=== PATIENT | female | born 1945 | race Caucasian/White ===

== ENCOUNTER 2018-02-04 09:42 | Emergency (ER) | payer MEDICARE ==
--- NOTE | 2018-02-04 10:02 | ER Document Report ---
ED Fall - General Chief Complaint: Fall Stated Complaint: FALL RIGHT HIP PAIN Time Seen by Provider: 02/04/18 10:01 Notes: 73-year-old female lost her balance approximately 2 weeks ago. Fell landed on her right side. Complaining of pain in her right hip. Was bruised but bruising is better but walking and pain seems to be getting worse over the last 2 weeks. Pain in the bilateral humerus arms. States that she thinks is just her muscles that are sore but once x-rays of her arms as well. Had a headache this morning but has chronic headaches. Requesting something for pain. States that her doctor has retired and she does not have regular doctor at this time. TRAVEL OUTSIDE OF THE [place] IN LAST 30 DAYS: No - HPI Occurred: Other - 2 weeks ago Where: Home Past Medical History - General Information source: Patient - Social History Smoking Status: Former Smoker Chew tobacco use (# tins/day): No Frequency of alcohol use: None Drug Abuse: None Lives with: Spouse/Significant other Family History: Reviewed & Not Pertinent Patient has suicidal ideation: No Patient has homicidal ideation: No - Past Medical History Cardiac Medical History: Reports: None Pulmonary Medical History: Reports: None EENT Medical History: Reports: None Renal/ Medical History: Reports: None. Denies: Hx Peritoneal Dialysis GI Medical History: Reports: Hx Gastroesophageal Reflux Disease Past Surgical History: Reports: Hx Hysterectomy Review of Systems - Review of Systems Constitutional: No symptoms reported EENT: No symptoms reported Cardiovascular: No symptoms reported Respiratory: No symptoms reported Gastrointestinal: No symptoms reported Genitourinary: No symptoms reported Female Genitourinary: No symptoms reported Musculoskeletal: See HPI, Other - Right hip pain, bilateral arm pain Skin: No symptoms reported Hematologic/Lymphatic: No symptoms reported Neurological/Psychological: No symptoms reported, Headaches Physical Exam - Vital signs Interpretation: Normal - General General appearance: Appears well, Alert - HEENT Head: Normocephalic, Atraumatic Eyes: Normal Pupils: PERRL - Respiratory Respiratory status: No respiratory distress Chest status: Nontender Breath sounds: Normal Chest palpation: Normal - Cardiovascular Rhythm: Regular Heart sounds: Normal auscultation Murmur: No - Abdominal Inspection: Normal Distension: No distension Bowel sounds: Normal Tenderness: Nontender Organomegaly: No organomegaly - Back Back: Normal, Nontender - Extremities General upper extremity: Normal inspection, Normal color, Normal ROM, Normal temperature, Other - Tenderness palpation bilateral bicep area. No obvious deformities. Full range of motion of the shoulder and elbow. General lower extremity: Normal inspection, Normal color, Normal temperature, Other - Range of motion of the right hip due to pain. Tenderness to palpation of the trochanter on the right. Mild tenderness palpation of the pubic symphysis on the right side.. No: Chloe's sign - Neurological Neuro grossly intact: Yes Cognition: Normal Orientation: AAOx4 Juan Coma Scale Eye Opening: Spontaneous Juan Coma Scale Verbal: Oriented Juan Coma Scale Motor: Obeys Commands Juan Coma Scale Total: 15 Speech: Normal Motor strength normal: LUE, RUE, LLE, RLE Sensory: Normal - Psychological Associated symptoms: Normal affect, Normal mood - Skin Skin Temperature: Warm Skin Moisture: Dry Skin Color: Normal Course - Re-evaluation Re-evalutation: 02/04/18 10:39 This time we will x-ray the right hip and bilateral humerus. Will get something for the pain and reassess. 02/04/18 12:22 Currently there is no radiographic evidence of acute fracture. Will treat with pain medication. Advised to return for any worsening symptoms or concerns. 02/04/18 12:22 Hip/Pelvis X-Ray 02/04/18 09:50 IMPRESSION: NEGATIVE STUDY OF THE RIGHT HIP. NO RADIOGRAPHIC EVIDENCE OF ACUTE INJURY. Humerus X-Ray 02/04/18 10:30 IMPRESSION: NEGATIVE STUDY OF THE RIGHT AND LEFT HUMERUS. NO RADIOGRAPHIC EVIDENCE OF ACUTE INJURY. Discharge - Discharge Clinical Impression: Contusion of right hip Qualifiers: Encounter type: initial encounter Qualified Code(s): S70.01XA - Contusion of right hip, initial encounter Strain of biceps tendon Qualifiers: Encounter type: sequela Laterality: unspecified laterality Qualified Code(s): S46.219S - Strain of muscle, fascia and tendon of other parts of biceps, unspecified arm, sequela Condition: Good Disposition: HOME, SELF-CARE Instructions: Contusion ([facility]), Muscle Strain ([facility]) Prescriptions: Docusate Sodium [Colace 100 mg Capsule] 100 mg PO DAILY #30 capsule Hydrocodone/Acetaminophen [[place] 5-325 mg Tablet] 1 tab PO TID PRN 5 Days #15 tablet PRN Reason: Referrals: BERT HURT MD [ACTIVE STAFF] - Follow up as needed MAYI WATTS MD [ACTIVE STAFF] - Follow up as needed
[2018-02-04] MEDS ORDERED: HYDROCODONE/ACETAMINOPHEN 5-325 MG TABLET PO ONE (10:30)
--- NOTE | 2018-02-04 12:19 | RADIOLOGY REPORT (SQ) ---
EXAM DESCRIPTION: HUMERUS BILAT 2 OR MORE VIEWS COMPLETED DATE/TIME: 02/04/2018 11:54 am REASON FOR STUDY: fall, pain COMPARISON: None. NUMBER OF VIEWS: Two views. TECHNIQUE: Two radiographic images were acquired of the right and left humerus to include elbow and shoulder in at least one projection. LIMITATIONS: None. FINDINGS: MINERALIZATION: Normal. BONES: No acute fracture or dislocation. No worrisome bone lesions. SOFT TISSUES: No obvious swelling or foreign body. OTHER: No other significant finding. IMPRESSION: NEGATIVE STUDY OF THE RIGHT AND LEFT HUMERUS. NO RADIOGRAPHIC EVIDENCE OF ACUTE INJURY. TECHNICAL DOCUMENTATION: JOB ID: [id number] [employer]- All Rights Reserved Reading location - IP/workstation name: [email or web address]
--- NOTE | 2018-02-04 12:20 | RADIOLOGY REPORT (SQ) ---
EXAM DESCRIPTION: HIP RIGHT AP/LATERAL COMPLETED DATE/TIME: 02/04/2018 11:54 am REASON FOR STUDY: fall COMPARISON: None. NUMBER OF VIEWS: Two views. TECHNIQUE: AP pelvis and additional frog-leg view of the right hip. LIMITATIONS: None. FINDINGS: MINERALIZATION: Normal. RIGHT HIP: No fracture or dislocation. No worrisome bone lesions. LEFT HIP: No fracture or dislocation. No worrisome bone lesions. PUBIS AND ISCHIUM: No fracture. PELVIS: No fracture. SACRUM: No fracture or dislocation. No worrisome bone lesions. LOWER LUMBAR SPINE: No fracture or dislocation. No worrisome bone lesions. No significant disc disea se. SOFT TISSUES: No findings. OTHER: No other significant finding. IMPRESSION: NEGATIVE STUDY OF THE RIGHT HIP. NO RADIOGRAPHIC EVIDENCE OF ACUTE INJURY. TECHNICAL DOCUMENTATION: JOB ID: [id number] [employer]- All Rights Reserved Reading location - IP/workstation name: [email or web address]
[2018-02-04] MEDS ORDERED: KETOROLAC TROMETHAMINE 60 MG/2 ML SDV IM ONE (12:29)
[2018-02-04 13:04] VITALS: BP 123/67
== END 2018-02-04 13:08 | disposition home or self-care (01) ==
LOC: ER 09:42
DX: S70.01XA Contusion of right hip, initial encounter (principal); S46.219D Strain of muscle, fascia and tendon of other parts of biceps, unspecified arm, subsequent encounter; M25.551 Pain in right hip; M79.601 Pain in right arm; M79.602 Pain in left arm; R51 Headache; W19.XXXD Unspecified fall, subsequent encounter; Z87.891 Personal history of nicotine dependence
CPT/HCPCS: 99284; 96372; 73502; 73060; J1885; A9270

== ENCOUNTER 2018-02-11 17:00 | Emergency (ER) | payer MEDICARE ==
[2018-02-11] MEDS ORDERED: HYDROCODONE/ACETAMINOPHEN 5-325 MG TABLET PO ONE (18:36)
[2018-02-11] MEDS ORDERED: IBUPROFEN 600 MG TABLET PO ONE (18:36)
--- NOTE | 2018-02-11 18:37 | ER Document Report ---
ED Medical Screen (RME) - General Chief Complaint: Arm Problem Stated Complaint: PAIN ON RIGHT SIDE Time Seen by Provider: 02/11/18 17:21 Notes: She fell approximately 3 weeks ago. Was seen in the ER by myself. Was having pain in the right arm and right hip. Had a shot of Toradol which helped for 2 days but now complaining of worsening pain. Thinks he may have psoriatic arthritis because her [id number] lifted up on the Internet. States she is having some much pain that she cannot get out of bed. TRAVEL OUTSIDE OF THE [place] IN LAST 30 DAYS: No - HPI Onset: Other - 3 weeks ago - Related Data Allergies/Adverse Reactions: amitriptyline [From Triavil] Allergy (Verified 02/11/18 18:32) perphenazine [From Triavil] Allergy (Verified 02/11/18 18:32) trifluoperazine [From Stelazine] Allergy (Verified 02/11/18 18:32) Past Medical History - General Information source: Patient - Social History Chew tobacco use (# tins/day): No Frequency of alcohol use: None Drug Abuse: None Lives with: Spouse/Significant other Family history: Reviewed & Not Pertinent Renal/ Medical History: Denies: Hx Peritoneal Dialysis GI Medical History: Reports: Hx Gastroesophageal Reflux Disease Psychiatric Medical History: Reports: Hx Depression Past Surgical History: Reports: Hx Cholecystectomy, Hx Hysterectomy, Hx Tubal Ligation Review of Systems - Review of Systems Constitutional: No symptoms reported EENT: No symptoms reported Cardiovascular: No symptoms reported Respiratory: No symptoms reported Gastrointestinal: No symptoms reported Genitourinary: No symptoms reported Female Genitourinary: No symptoms reported Musculoskeletal: See HPI, Other - Shoulder plain, hip pain Skin: Other - Rash at the base of the scalp Hematologic/Lymphatic: No symptoms reported Neurological/Psychological: No symptoms reported Physical Exam - Vital signs Vitals: Temp Pulse Resp BP Pulse Ox 98.8 F 90 14 128/58 H 96 02/11/18 17:08 02/11/18 17:08 02/11/18 17:08 02/11/18 17:08 02/11/18 17:08 Interpretation: Normal - General General appearance: Appears well, Alert - Respiratory Respiratory status: No respiratory distress Chest status: Nontender Breath sounds: Normal Chest palpation: Normal - Cardiovascular Rhythm: Regular Heart sounds: Normal auscultation Murmur: No - Extremities General upper extremity: Normal inspection, Tender, Normal color, Normal ROM, Normal temperature, Other - Numbness right shoulder/proximal varus General lower extremity: Normal inspection, Tender, Normal color, Normal ROM, Normal temperature, Normal weight bearing, Other - Out pain to palpation right hip.. No: Chloe's sign - Skin Skin Temperature: Warm Skin Moisture: Dry Skin Color: Normal, Other - Faint rash at the hairline at the occipital scalp. Course - Vital Signs Vital signs: Temp Pulse Resp BP Pulse Ox 98.8 F 90 14 128/58 H 96 02/11/18 17:08 02/11/18 17:08 02/11/18 17:08 02/11/18 17:08 02/11/18 17:08
--- NOTE | 2018-02-11 19:30 | RADIOLOGY REPORT (SQ) ---
EXAM DESCRIPTION: CHEST SINGLE VIEW COMPLETED DATE/TIME: 02/11/2018 7:24 pm REASON FOR STUDY: weakness, cough COMPARISON: None. EXAM PARAMETERS: NUMBER OF VIEWS: One view. TECHNIQUE: Single frontal radiographic view of the chest acquired. RADIATION DOSE: NA LIMITATIONS: None. FINDINGS: LUNGS AND PLEURA: No opacities, masses or pneumothorax. No pleural effusion. MEDIASTINUM AND HILAR STRUCTURES: No masses. Contour normal. HEART AND VASCULAR STRUCTURES: Heart normal in size. Normal vasculature. BONES: No acute findings. HARDWARE: None in the chest. OTHER: No other significant finding. IMPRESSION: NO ACUTE RADIOGRAPHIC FINDING IN THE CHEST. TECHNICAL DOCUMENTATION: JOB ID: [id number] [employer]- All Rights Reserved Reading location - IP/workstation name: [email or web address]
--- NOTE | 2018-02-11 19:46 | RADIOLOGY REPORT (SQ) ---
EXAM DESCRIPTION: CT RT LOWER EXTREMITY WITHOUT COMPLETED DATE/TIME: 02/11/2018 7:37 pm REASON FOR STUDY: eval possible right hip fx COMPARISON: None. TECHNIQUE: CT scan of the right hip performed without intravenous or oral contrast. Images reviewed with soft tissue and bone windows. Reconstructed coronal and sagittal MPR images reviewed. All lewis ges stored on PACS. All CT scanners at this facility use dose modulation, iterative reconstruction, and/or weight based d osing when appropriate to reduce radiation dose to as low as reasonably achievable (ALARA). [facility]: Dose Right [facility]: CareDose [facility]: Dose Right [facility]: Teradose 4D [facility]: [employer] RADIATION DOSE: CT Rad equipment meets quality standard of care and radiation dose reduction techniq ues were employed. CTDIvol: 4.1 mGy. DLP: 83 mGy-cm. mGy. LIMITATIONS: None. FINDINGS: VISUALIZE PELVIC BONES: No acute fracture. No worrisome bone lesions. SYMPTOMATIC HIP: No acute fracture or dislocation. No worrisome bone lesions. OPPOSITE HIP: Not included in field of view. PELVIC SOFT TISSUES: No significant findings. EXTRAPELVIC SOFT TISSUES: No significant findings. OTHER: No other significant finding. IMPRESSION: NO ACUTE OR SIGNIFICANT FINDINGS IN THE RIGHT HIP OR VISUALIZED PELVIS. TECHNICAL DOCUMENTATION: JOB ID: [id number] Quality ID # [id number]: Final reports with documentation of one or more dose reduction techniques (e.g., Au tomated exposure control, adjustment of the mA and/or kV according to patient size, use of iterative reconstruction technique) 2010 [employer]- All Rights Reserved Reading location - IP/workstation name: [email or web address]
--- NOTE | 2018-02-11 19:51 | ER Document Report ---
ED General - General Chief Complaint: Arm Problem Stated Complaint: PAIN ON RIGHT SIDE Time Seen by Provider: 02/11/18 17:21 Notes: Patient is a 73-year-old female who presents with multiple complaints. Her main concern is of diffuse right-sided body pain that she states she has had for at least 3-4 weeks ever since falling. She describes it as a spasming, throbbing, aching pain mostly localized to her right shoulder and right hip. She states any attempt at moving these areas worsens the pain. She states that when she received Toradol in the emergency department several days ago this did resolve the pain for 2 days but has now returned. She has not yet followed up with her primary care physician. She denies any areas of focal weakness or numbness. She has returned to the emergency department today as she states that the muscle pains and spasms seem to be worse now than prior and she is concerned that something else is ongoing. Although the patient initially states that she has not been able to get out of bed, when I push further on this topic she does report that it is difficult for her to get up with that once she is up and moving she is able to do so without significant difficulty. She denies any recurrent falls. No fever, shortness of breath, head trauma, neck pain, or altered mental status. TRAVEL OUTSIDE OF THE [place] IN LAST 30 DAYS: No - Related Data Allergies/Adverse Reactions: amitriptyline [From Triavil] Allergy (Verified 02/11/18 18:32) perphenazine [From Triavil] Allergy (Verified 02/11/18 18:32) trifluoperazine [From Stelazine] Allergy (Verified 02/11/18 18:32) Past Medical History - General Information source: Patient - Social History Smoking Status: Never Smoker Chew tobacco use (# tins/day): No Frequency of alcohol use: None Drug Abuse: None Lives with: Spouse/Significant other Family History: Reviewed & Not Pertinent Patient has suicidal ideation: No Patient has homicidal ideation: No Renal/ Medical History: Denies: Hx Peritoneal Dialysis GI Medical History: Reports: Hx Gastroesophageal Reflux Disease Psychiatric Medical History: Reports: Hx Depression Past Surgical History: Reports: Hx Cholecystectomy, Hx Hysterectomy, Hx Tubal Ligation Review of Systems - Review of Systems Notes: Constitutional: Negative for fever. HENT: Negative for sore throat. Eyes: Negative for visual changes. Cardiovascular: Negative for chest pain. Respiratory: Negative for shortness of breath. Gastrointestinal: Negative for abdominal pain, vomiting or diarrhea. Genitourinary: Negative for dysuria. Musculoskeletal: Positive for right arm and right lower extremity pain Skin: Negative for rash. Neurological: Negative for headaches, weakness or numbness. 10 point ROS negative except as marked above and in HPI. Physical Exam - Vital signs Vitals: Temp Pulse Resp BP Pulse Ox 98.8 F 90 14 128/58 H 96 02/11/18 17:08 02/11/18 17:08 02/11/18 17:08 02/11/18 17:08 02/11/18 17:08 Interpretation: Normal Notes: PHYSICAL EXAMINATION: GENERAL: Well-appearing, well-nourished and in no acute distress. HEAD: Atraumatic, normocephalic. EYES: Pupils equal round and reactive to light, extraocular movements intact, sclera anicteric, conjunctiva are normal. ENT: nares patent, oropharynx clear without exudates. Moist mucous membranes. NECK: Normal range of motion, supple without lymphadenopathy LUNGS: Breath sounds clear to auscultation bilaterally and equal. No wheezes rales or rhonchi. HEART: Regular rate and rhythm without murmurs ABDOMEN: Soft, nontender, normoactive bowel sounds. No guarding, no rebound. No masses appreciated. EXTREMITIES: Normal range of motion, no pitting or edema. No cyanosis. Mild pain with axial loading of the right hip but no pain with internal or external rotation. NEUROLOGICAL: Face symmetric. Tongue protrudes midline. Extraocular motions intact. Pupils are 2 mm and equally reactive. Normal speech. 5 out of 5 strength in both the distal and proximal upper and lower extremities bilaterally. Sensation is grossly intact throughout. Finger to nose testing normal. Pronator drift normal. PSYCH: Normal mood, normal affect. SKIN: Warm, Dry, normal turgor, no rashes or lesions noted. Course - Re-evaluation Re-evalutation: 02/11/18 19:51 Patient presents with ongoing diffuse musculoskeletal pain mostly towards the right side after falling approximately 3 weeks ago. She was seen several days ago and had x-rays which were unremarkable. Patient has full range of motion in all joint spaces on examination. No focal neurologic deficits. RMU motor and sensory distribution is intact bilaterally. Will obtain laboratories to evaluate for possible acute rhabdomyolysis, occult infection that could be causing ongoing general weakness, as well as a CT of the right hip to exclude any occult hip fracture. If this all remains unremarkable will plan for outpatient follow-up with her primary doctor and return precautions. 02/11/18 22:44 CT of the right hip does not show any acute fracture. Chest x-ray clear. Urinalysis is consistent with a urinary tract infection and patient has been started on nitrofurantoin to treat. I have also started the patient on naproxen as I believe much of her pain and symptoms is coming from musculoskeletal inflammation after her recent fall. I have also encouraged the patient to take Imodium while taking naproxen so as to reduce chances of GI complications. At this time will discharge with return precautions and follow- up recommendations. Verbal discharge instructions given a the bedside and opportunity for questions given. Medication warnings reviewed. Patient is in agreement with this plan and has verbalized understanding of return precautions and the need for primary care follow-up in the next 24-72 hours. - Vital Signs Vital signs: Temp Pulse Resp BP Pulse Ox 97.3 F 88 16 141/72 H 96 02/11/18 23:27 02/11/18 23:27 02/11/18 23:27 02/11/18 23:27 02/11/18 23:27 - Laboratory Result Diagrams: 02/11/18 19:55 02/11/18 19:55 Laboratory results interpreted by me: 02/11/18 02/11/18 02/11/18 19:55 19:55 21:46 WBC 13.5 H Hgb 11.4 L Hct 34.4 L Plt Count 608 H Absolute Neutrophils 9.4 H Creatine Kinase 25 L Urine Ketones TRACE H Ur Leukocyte Esterase TRACE H - Diagnostic Test Radiology reviewed: Image reviewed, Reports reviewed Radiology results interpreted by me: 02/11/18 22:44 Chest x-ray: No acute infiltrate or pneumothorax Discharge - Discharge Clinical Impression: Whole body pain Contusion of right hip Qualifiers: Encounter type: subsequent encounter Qualified Code(s): S70.01XD - Contusion of right hip, subsequent encounter Urinary tract infection Qualifiers: Urinary tract infection type: acute cystitis Hematuria presence: without hematuria Qualified Code(s): N30.00 - Acute cystitis without hematuria Condition: Good Disposition: HOME, SELF-CARE Additional Instructions: Your urine shows findings consistent with a urinary tract infection. Please take all the antibiotics as directed even if your symptoms have improved. Please follow-up with your primary care physician as needed. Return to emergency room if you develop fever >101F, persistent vomiting, become lethargic , have severe pain in your sides, or any other symptoms that are concerning to you. Your muscle pain should improve over the next several weeks. Take the naproxen has been prescribed as directed as needed for pain. I would recommend taking Tylenol 1000 mg every 6 hours scheduled in addition to the naproxen to help with your pain. Take famotidine 20 mg twice daily well taking naproxen to protect your stomach. Please follow-up with your primary doctor at your earliest ability. Return for worsening difficulty walking, focal weakness, numbness, confusion, fever, or any other symptoms that are worrisome to you. Prescriptions: Famotidine 20 mg PO BID #30 tablet Naproxen 500 mg PO BID #60 tablet
[2018-02-11 20:16] LABS: ABSOLUTE BASOPHILS # (AUTO) 0.1 10^3/uL (0.0-0.2); ABSOLUTE EOSINOPHILS # (AUTO) 0.1 10^3/uL (0.0-0.6); ABSOLUTE LYMPHOCYTES (AUTO) 2.8 10^3/uL (0.5-4.7); ABSOLUTE MONOCYTES (AUTO) 1.1 10^3/uL (0.1-1.4); ABSOLUTE NEUT (AUTO) 9.4 10^3/uL (1.7-8.2); BASOPHILS % (AUTO) 0.7 % (0-2); EOSINOPHILS % (AUTO) 0.8 % (0-6); HEMATOCRIT 34.4 % (36.0-47.0); HEMOGLOBIN 11.4 g/dL (12.0-15.5); LYMPHOCYTES % (AUTO) 20.6 % (13-45); MEAN CORPUSCULAR HEMOGLOBIN 30.1 pg (27.0-33.4); MEAN CORPUSCULAR VOLUME 91 fl (80-97); MONOCYTES % (AUTO) 7.9 % (3-13); PLATELET COUNT 608 10^3/uL (150-450); RED BLOOD COUNT 3.77 10^6/uL (3.72-5.28); RED CELL DISTRIBUTION WIDTH 13.2 % (11.5-14.0); TOTAL CELLS COUNTED % (AUTO) 100 %; WHITE BLOOD COUNT 13.5 10^3/uL (4.0-10.5)
[2018-02-11 20:34] LABS: ALANINE AMINOTRANSFERASE 16 U/L (9-52); ALBUMIN 3.6 g/dL (3.5-5.0); ALKALINE PHOSPHATASE 63 U/L (38-126); ANION GAP 13 (5-19); ASPARTATE AMINO TRANSFERASE 16 U/L (14-36); BILIRUBIN,DIRECT 0.3 mg/dL (0.0-0.4); BILIRUBIN,TOTAL 0.3 mg/dL (0.2-1.3); BLOOD UREA NITROGEN 14 mg/dL (7-20); CALCIUM 9.4 mg/dL (8.4-10.2); CARBON DIOXIDE 27 mmol/L (22-30); CHLORIDE 103 mmol/L (98-107); CREATINE KINASE 25 U/L (30-135); GLUCOSE 92 mg/dL (75-110); POTASSIUM 4.2 mmol/L (3.6-5.0); SODIUM 143.2 mmol/L (137-145); TOTAL PROTEIN 6.6 g/dL (6.3-8.2)
[2018-02-11 22:16] LABS: APPEARANCE,URINE CLEAR; BILIRUBIN,URINE NEGATIVE (NEGATIVE); COLOR,URINE YELLOW; GLUCOSE, URINE NEGATIVE (NEGATIVE); KETONES,URINE TRACE mg/dL (NEGATIVE); LEUKOCYTE ESTERASE,URINE TRACE (NEGATIVE); NITRITE,URINE NEGATIVE (NEGATIVE); PROTEIN,URINE NEGATIVE (NEGATIVE); URINE SPECIFIC GRAVITY 1.009; UROBILINOGEN,URINE NEGATIVE mg/dL (<2.0)
[2018-02-11] MEDS ORDERED: NITROFURANTOIN MONOHYD/M-CRYST 100 MG CAPSULE PO ONE (22:39)
[2018-02-11] MEDS ORDERED: FAMOTIDINE 20 MG TABLET PO ONE (23:14)
[2018-02-11] MEDS ORDERED: KETOROLAC TROMETHAMINE 60 MG/2 ML SDV IM ONE (23:14)
[2018-02-11 23:46] VITALS: BP 141/72
== END 2018-02-11 23:27 | disposition home or self-care (01) ==
LOC: ER 17:00
DX: S70.01XD Contusion of right hip, subsequent encounter (principal); N30.00 Acute cystitis without hematuria; M79.1 Myalgia; M79.601 Pain in right arm; W19.XXXD Unspecified fall, subsequent encounter; Z90.49 Acquired absence of other specified parts of digestive tract; Z90.710 Acquired absence of both cervix and uterus
CPT/HCPCS: 99284; 96372; 36415; 87086; 82550; 85025; 80053; 81001; 71045; 73700; A9270 ×4; J1885; J8499